=== PATIENT | female | born 1955 | race American Indian/Alaskan Native ===

== ENCOUNTER 2016-10-12 11:31 | Emergency (ER) | payer MEDICARE, BC ==
--- NOTE | 2016-10-12 14:06 | XRay Report ---
RIGHT HIP, 2 views: History: Right hip pain. Moderate osteoarthritic changes are identified at the right hip. End-stage osteoarthritic changes identified at the left. There is no evidence for fracture, dislocation or bone lesion. IMPRESSION: Osteoarthritic changes. No acute process.
[2016-10-12] MEDS ORDERED: NORCO 5/325 PO ONE (16:56)
--- NOTE | 2016-10-12 17:24 | Emergency Department Report ---
<JIMMIE REYES - Last Filed: 10/12/16 20:46> ED Abdominal Pain HPI - General Chief Complaint: Extremity Injury, Lower Stated Complaint: SEVERE RIGHT SIDED PAIN - Related Data Home Medications Medication Instructions Recorded Confirmed Last Taken Carvedilol [Coreg] 25 mg PO DAILY 02/18/13 03/10/16 03/09/16 25mg Simvastatin [Zocor TAB] 20 mg PO QHS 02/18/13 03/10/16 03/08/16 20mg Aspirin EC [Aspirin Enteric Coated 81 mg PO 4XW 05/08/14 03/10/16 03/08/16 TAB] 81mg Hydralazine HCl [Apresoline TAB] 50 mg PO TID 05/08/14 03/10/16 03/08/16 50mg Sevelamer HCl [Renagel] 500 mg PO TIDAC 05/08/14 03/10/16 03/09/16 500mg Clonidine HCl [Clonidine HCl] 0.2 mg PO TID 09/06/14 03/10/16 03/09/16 0.2mg Losartan Potassium [Losartan 100 mg PO DAILY 09/06/14 03/10/16 03/09/16 Potassium] 100mg NIFEdipine XL [Procardia Xl] 60 mg PO QDAY 03/26/15 03/10/16 03/08/16 60mg Vitamin B Comp and C/FA/Zn Cit 1 tab PO 3XW 03/26/15 03/10/16 03/09/16 [Dialyvite 800-Zinc 15 mg Tab] 1 tab Previous Rx's Medication Instructions Recorded Last Taken Type oxyCODONE /ACETAMINOPHEN [Percocet 1 tab PO Q6HR PRN #20 tablet 01/15/14 Rx 5/325 mg] 1 tab HYDROcodone/APAP 5-325 [[place] 1 each PO Q6HR PRN #7 tablet 10/12/16 Unknown Rx 5/325] Ondansetron [Zofran Odt] 4 mg PO Q8H PRN #10 tab.rapdis 10/12/16 Unknown Rx Allergies Allergy/AdvReac Type Severity Reaction Status Date / Time ampicillin Allergy Hives Verified 12/11/13 13:57 Penicillins Allergy Hives Verified 04/01/14 00:52 Sulfa (Sulfonamide Allergy Hives Verified 12/11/13 13:57 Antibiotics) ED Review of Systems ROS: Stated complaint: SEVERE RIGHT SIDED PAIN Other details as noted in HPI ED Past Medical Hx - Medications Home Medications: Home Medications Medication Instructions Recorded Confirmed Last Taken Type Carvedilol [Coreg] 25 mg PO DAILY 02/18/13 03/10/16 03/09/16 History 25mg Simvastatin [Zocor TAB] 20 mg PO QHS 02/18/13 03/10/16 03/08/16 History 20mg oxyCODONE /ACETAMINOPHEN [Percocet 1 tab PO Q6HR PRN #20 tablet 01/15/1403/08/16 Rx 5/325 mg] 1 tab Aspirin EC [Aspirin Enteric Coated 81 mg PO 4XW 05/08/14 03/10/16 03/08/16 History TAB] 81mg Hydralazine HCl [Apresoline TAB] 50 mg PO TID 05/08/14 03/10/16 03/08/16 History 50mg Sevelamer HCl [Renagel] 500 mg PO TIDAC 05/08/14 03/10/16 03/09/16 History 500mg Clonidine HCl [Clonidine HCl] 0.2 mg PO TID 09/06/14 03/10/16 03/09/16 History 0.2mg Losartan Potassium [Losartan 100 mg PO DAILY 09/06/14 03/10/16 03/09/16 History Potassium] 100mg NIFEdipine XL [Procardia Xl] 60 mg PO QDAY 03/26/15 03/10/16 03/08/16 History 60mg Vitamin B Comp and C/FA/Zn Cit 1 tab PO 3XW 03/26/15 03/10/16 03/09/16 History [Dialyvite 800-Zinc 15 mg Tab] 1 tab HYDROcodone/APAP 5-325 [[place] 1 each PO Q6HR PRN #7 tablet 10/12/16 Unknown Rx 5/325] Ondansetron [Zofran Odt] 4 mg PO Q8H PRN #10 tab.rapdis 10/12/16 Unknown Rx ED Course Vital Signs 10/12/16 10/12/16 13:30 17:03 Temperature 98.5 F Pulse Rate 89 Respiratory 16 18 Rate Blood Pressure 132/78 O2 Sat by Pulse 100 Oximetry ED Medical Decision Making - Lab Data Result diagrams: 10/12/16 18:04 10/12/16 18:04 Critical care attestation.: If time is entered above; I have spent that time in minutes in the direct care of this critically ill patient, excluding procedure time. ED Disposition Clinical Impression: Right upper quadrant pain Disposition: LEFT AGAINST MEDICAL ADVICE Condition: Stable Instructions: Biliary Colic (ED), Against Medical Advice (ED) Additional Instructions: I advised patient to return to the ED if she experiences fevers chills nausea vomiting inability to tolerate anything by mouth or worsening pain in her abdomen. Patient left AGAINST MEDICAL ADVICE Prescriptions: HYDROcodone/APAP 5-325 [[place] 5/325] 1 each PO Q6HR PRN #7 tablet PRN Reason: Pain Ondansetron [Zofran Odt] 4 mg PO Q8H PRN #10 tab.rapdis PRN Reason: Nausea Referrals: TEVIN GOMEZ MD [Staff Physician] - 3-5 Days Forms: AMA Form, Accompanied Note <PRESLEY SORIA - Last Filed: 10/12/16 21:08> ED Abdominal Pain HPI - General Source: patient Mode of arrival: Ambulatory Limitations: No Limitations - History of Present Illness Initial Comments: 60-year-old female past medical history diabetes hypertension hyperlipidemia stage renal disease on hemodialysis Wednesday presents with complaint of 2 days of right-sided abdominal pain mild nausea. She states that pain is waxing and waning but generally intensifying in nature slightly worse when she walks. Denies any fevers chills no dysuria patient does not make any urine because she is on dialysis. No rash on skin Complaint: abdominal pain Onset/Timin -: days(s) Location: RUQ, RLQ, R flank Migration to: RUQ Severity: moderate Severity scale (0 -10): 8 Quality: sharp Consistency: intermittent ED Review of Systems Constitutional: denies: chills, fever Eyes: denies: eye pain, eye discharge, vision change ENT: denies: ear pain, throat pain Respiratory: denies: cough, shortness of breath, wheezing Cardiovascular: denies: chest pain, palpitations Endocrine: no symptoms reported Gastrointestinal: abdominal pain (right sided abd pain). denies: nausea, diarrhea Genitourinary: denies: urgency, dysuria, discharge Musculoskeletal: denies: back pain, joint swelling, arthralgia Skin: denies: rash, lesions Neurological: denies: headache, weakness, paresthesias Psychiatric: denies: anxiety, depression Hematological/Lymphatic: denies: easy bleeding, easy bruising ED Past Medical Hx - Past Medical History Hx Hypertension: Yes Hx Congestive Heart Failure: Yes Hx Diabetes: Yes Hx GERD: Yes Hx Renal Disease: Yes Hx Arthritis: Yes (generalized) Hx Headaches / Migraines: Yes Additional medical history: dialysis MWFanemia. Cataracts. diabetic retinopathy. - Surgical History Additional Surgical History: had laser surgery on right eye related to diabetes - Social History Smoking Status: Never Smoker ED Physical Exam - General Limitations: No Limitations General appearance: alert, in no apparent distress - Head Head exam: Present: atraumatic, normocephalic - Eye Eye exam: Present: normal appearance, PERRL, EOMI - ENT ENT exam: Present: mucous membranes moist - Neck Neck exam: Present: normal inspection - Respiratory Respiratory exam: Present: normal lung sounds bilaterally. Absent: respiratory distress - Cardiovascular Cardiovascular Exam: Present: regular rate, normal rhythm. Absent: systolic murmur, diastolic murmur, rubs, gallop - GI/Abdominal GI/Abdominal exam: Present: soft, tenderness, guarding (right sided abdominal pain), normal bowel sounds - Extremities Exam Extremities exam: Present: normal inspection - Back Exam Back exam: Present: normal inspection - Neurological Exam Neurological exam: Present: alert, oriented X3 - Psychiatric Psychiatric exam: Present: normal affect, normal mood - Skin Skin exam: Present: warm, dry, intact, normal color. Absent: rash ED Medical Decision Making - Lab Data Result diagrams: 10/12/16 18:04 10/12/16 18:04 - Medical Decision Making A/P: Biliary colic versus cholecystitis 1-although patient has no fever is exhibiting right sided abdominal pain with nausea and persistent pain despite oral [place]. Correlated with CAT scan and ultrasound report patient has moderate to severe case of biliary colic. Bilirubins were not particularly elevated lactic acid is not elevated, however patient is having mild difficulty tolerating by mouth. Patient was nauseous and vomited when I reassessed her, complaining of pain returning to her right side. I informed the patient that if she was in severe pain with persistent nausea that it would be appropriate to admit her to the hospital for IV pain medicine and acute assessment by surgical team. Patient stated that she did not want to stay in the hospital 2-she elected to leave AMA I discussed the risks of leaving with the patient her daughter was present for this conversation. I informed her that if she develops cholecystitis or persistent pain suggestive of cholecystitis that this can be an emergent surgical condition. Patient stated she understood my explanation but still did not wish to be admitted to the hospital as evening. I advised patient to return to the ED if her symptoms worsened she experiences fevers chills persistent nausea and vomiting worsening pain as this is likely a sign of cholecystitis. I informed the patient that she is at risk of sepsis and if it is not treated medically and surgically. Patient stated she understood these risks daughter was present for this conversation. 3-Zofran when necessary, short course [place] 4-will provide patient with outpatient follow-up information for general surgery , Dr. Gomez. I discussed the case with Dr. Gomez before discharging the patient. At the time of consultation pt did not have significant pain and was not nauseous. Pain and nausea worsened after consultation. Initial plan was to discharge patient with outpatient follow-up surgery team however circumstances of her symptoms at the time of reassessment. I explained to the patient before she left that general surgery follow up is very important to her particular case. Pt stated she would call to make a f/u appointment ED Disposition Is pt being admited?: No Does the pt Need Aspirin: No Time of Disposition: 21:00
--- NOTE | 2016-10-12 18:21 | Cat Scan Report ---
FINAL REPORT EXAM: CT ABDOMEN PELVIS WO CON HISTORY: rlq pain TECHNIQUE: CT of the abdomen and pelvis without contrast PRIORS: Comparison is dated October 08, 2015 FINDINGS: There is no acute abnormality identified in the visualized lung bases No focal abnormality seen within the liver parenchyma on nonenhanced images Spleen is normal in size no peripancreatic inflammatory changes are observed. Kidneys demonstrate no evidence for nephrolithiasis or hydronephrosis Gallbladder is distended. There is some dense material seen layering within the gallbladder likely reflecting small stones or sludge There is increased amount of fecal material present throughout the colon. No evidence for small bowel distention. No free-fluid or free air identified. At L1-L2 there is some erosive change seen along the vertebral endplates new since the prior exam with some expansion of the disc space this is new since the prior study. There is some concern for discitis/osteomyelitis. Abdominal aorta is nondistended. . The appendix is identified and is unremarkable Impression Distended gallbladder. Small stones or sludge within the lumen of the gallbladder. If there is clinical concern for cholecystitis ultrasound suggested for further evaluation Findings suggestive of discitis/osteomyelitis at L1-L2. If continued clinical concern suggest followup MRI preferably with and without contrast for further evaluation
[2016-10-12 18:28] LABS: Basophils % (Auto) 0.8 % (0.0-1.8); Eosinophils % (Auto) 6.9 % (0.0-4.3); Hemoglobin 11.7 gm/dl (10.1-14.3); Mean Corpuscular HGB Conc 32 % (30-34); Mean Corpuscular Hemoglobin 31 pg (28-32); Mean Corpuscular Volume 96 fl (79-97); Platelet Count 206 K/mm3 (140-440); Red Blood Count 3.75 M/mm3 (3.65-5.03); Red Cell Distribution Width 14.3 % (13.2-15.2); White Blood Count 4.5 K/mm3 (4.5-11.0)
[2016-10-12 18:37] LABS: BUN/Creatinine Ratio 3.89; Calcium 9.5 mg/dL (8.4-10.2); Chloride 89.8 mmol/L (98-107); Potassium 4.6 mmol/L (3.6-5.0)
[2016-10-12 18:38] LABS: Alanine Aminotransferase 9 units/L (7-56); Albumin 3.9 g/dL (3.9-5); Alkaline Phosphatase 171 units/L (35-129)
[2016-10-12 18:39] LABS: Bilirubin,Direct < 0.2 mg/dL (0-0.2); Bilirubin,Indirect 0.1 mg/dL
--- NOTE | 2016-10-12 20:10 | Ultrasound Report ---
FINAL REPORT EXAM: US ABDOMEN LIMITED HISTORY: gallbladder distention on CT TECHNIQUE: Ultrasound abdomen PRIORS: Correlated today's earlier CT abdomen and pelvis FINDINGS: Gallbladder is distended. No evidence for gallbladder wall thickening. Wall thickness is 0.17 centimeters. There is some sludge seen within the lumen of the gallbladder. No pericholecystic fluid seen Common bile duct is within normal limits 0.5 centimeters pancreas is not well visualized aorta is not well seen. Proximal aorta is unremarkable. IMPRESSION: Sludge within distended gallbladder. No specific sonographic evidence for acute cholecystitis
[2016-10-12 20:45] LABS: Amylase 134 units/L (27-131); Lipase 19 units/L (13-60)
[2016-10-12] MEDS ORDERED: MORPHINE IM ONE (21:01)
[2016-10-12] MEDS: ZOFRAN ODT PO ONE ×2 (21:20→21:25)
[2016-10-12 22:10] VITALS: BP 130/82
== END 2016-10-12 22:10 | disposition left against medical advice (07) ==
LOC: ED 11:31
DX: R10.11 Right upper quadrant pain (principal); E11.22 Type 2 diabetes mellitus with diabetic chronic kidney disease; I12.0 Hypertensive chronic kidney disease with stage 5 chronic kidney disease or end stage renal disease; N18.6 End stage renal disease; Z99.2 Dependence on renal dialysis; I50.9 Heart failure, unspecified; K21.9 Gastro-esophageal reflux disease without esophagitis; G43.909 Migraine, unspecified, not intractable, without status migrainosus
CPT/HCPCS: 36415; 73502; 74176; 76705; 80048; 80074; 82140; 82150; 82962; 83690; 85025; 96372; 99284; J2270; Q0162

== ENCOUNTER 2017-08-07 11:23 | Emergency (ER) | payer MEDICARE ==
--- NOTE | 2017-08-07 13:33 | Emergency Department Report ---
HPI - General Chief Complaint: Back Pain/Injury Time Seen by Provider: 08/07/17 12:18 ED Past Medical Hx - Past Medical History Hx Hypertension: Yes Hx Congestive Heart Failure: Yes Hx Diabetes: Yes Hx GERD: Yes Hx Renal Disease: Yes Hx Arthritis: Yes (generalized) Hx Headaches / Migraines: Yes Additional medical history: dialysis MWF. anemia. Cataracts. diabetic retinopathy. - Surgical History Additional Surgical History: had laser surgery on right eye related to diabetes. HYSTERECTOMY. FISTULA LEFT ARM - Social History Smoking Status: Never Smoker - Medications Home Medications: Home Medications Medication Instructions Recorded Confirmed Last Taken Type Carvedilol [Coreg] 25 mg PO DAILY 02/18/13 10/15/16 03/09/16 History 25mg Simvastatin [Zocor TAB] 20 mg PO QHS 02/18/13 10/15/16 03/08/16 History 20mg Aspirin EC [Aspirin Enteric Coated 81 mg PO 4XW 05/08/14 10/15/16 03/08/16 History TAB] 81mg Sevelamer HCl [Renagel] 500 mg PO TIDAC 05/08/14 10/15/16 03/09/16 History 500mg Losartan Potassium 100 mg PO DAILY 09/06/14 10/15/16 03/09/16 History 100mg NIFEdipine XL [Procardia Xl] 60 mg PO QDAY 03/26/15 10/15/16 03/08/16 History 60mg Vit B Complx C/Folic Acid/Zinc 1 tab PO 3XW 03/26/15 10/15/16 03/09/16 History [Dialyvite 800-Zinc 15 mg Tab] 1 tab Metoclopramide HCl [Reglan TAB] 5 mg PO Q8H PRN #10 tablet 10/12/16 10/15/16 Unknown Rx metroNIDAZOLE [Flagyl] 500 mg PO Q12HR #20 tab 10/12/16 10/15/16 Unknown Rx Dicyclomine [Bentyl] 10 mg PO QID #120 capsule 10/17/16 Unknown Rx Lactulose [Cephulac] 20 gm PO QHS PRN #30 each 10/17/16 Unknown Rx Oxycodone HCl/Acetaminophen 1 each PO Q6HR PRN #30 tablet 10/17/16 Unknown Rx [Percocet 10/325 mg] ED Review of Systems ROS: Stated complaint: BACK/BILATERAL FLANK PAIN/FALL Other details as noted in HPI Physical Exam - Physical Exam Vital Signs: Vital Signs 08/07/17 11:29 Temperature 98.8 F Pulse Rate 98 H Respiratory 20 Rate Blood Pressure 179/92 [Right] O2 Sat by Pulse 96 Oximetry ED Course Vital Signs 08/07/17 11:29 Temperature 98.8 F Pulse Rate 98 H Respiratory 20 Rate Blood Pressure 179/92 [Right] O2 Sat by Pulse 96 Oximetry Critical care attestation.: If time is entered above; I have spent that time in minutes in the direct care of this critically ill patient, excluding procedure time. ED Disposition Condition: Stable Referrals: RUSTY SANTIAGO MD [Primary Care Provider] - 3-5 Days
[2017-08-07] MEDS ORDERED: PERCOCET 5/325 PO ONE (13:34)
[2017-08-07] MEDS ORDERED: DECADRON IM ONE (13:34)
[2017-08-07] MEDS ORDERED: ZOFRAN ODT PO ONE (13:34)
--- NOTE | 2017-08-07 13:41 | Emergency Department Report ---
Chief Complaint: Back Pain/Injury Stated Complaint: BACK/BILATERAL FLANK PAIN/FALL Time Seen by Provider: 08/07/17 12:18 - HPI History of Present Illness: Patient here reports that she fell over a week ago and hurt her back. She says she was evaluated at [place] where they did a scan of her back. She said they told her that she had a pulled muscle but now she is having pain to both her hips and her lower back that radiated around her stomach area. Denies any fever or chills. Patient's that she is on dialysis and she missed her dialysis yesterday. Her pain is 10 out of 10 to her abdomen. Denies any nausea or vomiting. Patient is requested to be admitted because she said they wanted to admit her but she had a in her family. She says she is taking ibuprofen [id number] and it's not helping. Patient denies any other problems. - ROS Review of Systems: All systems are negative unless stated in HPI above - Exam Vital Signs: Vital Signs 08/07/17 11:29 Temperature 98.8 F Pulse Rate 98 H Respiratory 20 Rate Blood Pressure 179/92 [Right] O2 Sat by Pulse 96 Oximetry Physical Exam: Gen.: elderly female that looks older than her age and a wheelchair and appears to be frail. Abdomen: Mild tenderness palpating lower quadrant. No acute abdomen, no guarding or rebound and no CVA tenderness. MSE screening note: Focused history and physical exam performed. Due to findings the following was ordered: ED Medical Decision Making - Medical Decision Making MDM: Patient medically screened and to be seen by Edilberto She is to receive Percocet 5/325 2 tablets, Decadron 10 mg IM for radiculopathic pain and Zofran 4 mg ODT to prevent nausea. Labs and CT scan ordered. ED Disposition for MSE Condition: Stable Referrals: RUSTY SANTIAGO MD [Primary Care Provider] - 3-5 Days
[2017-08-07 14:18] LABS: Basophils % (Auto) 0.9 % (0.0-1.8); Eosinophils # (Auto) 0.3 K/mm3 (0.0-0.4); Hematocrit 35.6 % (30.3-42.9); Hemoglobin 11.4 gm/dl (10.1-14.3); Lymphocytes # (Auto) 0.9 K/mm3 (1.2-5.4); Lymphocytes % (Auto) 21.2 % (13.4-35.0); Mean Corpuscular HGB Conc 32 % (30-34); Mean Corpuscular Hemoglobin 31 pg (28-32); Mean Corpuscular Volume 95 fl (79-97); Monocytes # (Auto) 0.6 K/mm3 (0.0-0.8); Monocytes % (Auto) 13.2 % (0.0-7.3); Platelet Count 278 K/mm3 (140-440); Red Blood Count 3.73 M/mm3 (3.65-5.03)
[2017-08-07 14:39] LABS: Albumin 3.6 g/dL (3.9-5); Calcium 9.3 mg/dL (8.4-10.2)
--- NOTE | 2017-08-07 15:23 | Cat Scan Report ---
FINAL REPORT EXAM: CT ABDOMEN PELVIS WO CON HISTORY: abdominal pain TECHNIQUE: CT of the abdomen and pelvis was performed without intravenous contrast. Reconstructions were included in the coronal and sagittal planes. PRIORS: 10/12/2016. FINDINGS: Lower thorax: The lung bases are clear. Coronary artery calculi seen. Liver: The liver is normal in attenuation. No intrahepatic biliary duct dilation. No focal hepatic lesions. Gallbladder/ biliary system: Sludge or small stones are again seen layering in the gallbladder. There appears to be gallbladder wall thickening with a trace amount of pericholecystic fluid. The common bile duct appears nondilated. Spleen: No splenic lesions are seen. Pancreas: No pancreatic lesions are seen. No pancreatic duct dilation. Kidneys: A simple left renal cyst is seen. 2 millimeter calculus is seen in the inferior pole of the right kidney. No ureteral calculi. No hydronephrosis. Adrenal glands: No adrenal masses. Vasculature: The abdominal aorta is nondilated. Atherosclerotic calcifications are seen in the abdominal aorta. Lymph nodes: No enlarged lymph nodes are seen in the abdomen or pelvis. Bowel, mesentery, peritoneum: No bowel obstruction. No free fluid or free air. The appendix was not definitively seen. No colonic diverticulosis. No bowel wall thickening. There is a large amount of retained stool throughout the colon. Urinary bladder: No filling defects are seen. Pelvis: Post hysterectomy. Abdominal wall: There is diastasis of the rectus abdominus musculature. Bones: Unchanged degenerative findings in the spine. Chronic endplate changes at L1-2 are again seen with severe destruction of the endplates and gas within the disc space. Severe degenerative changes of the hip joints are seen. IMPRESSION: 1. Cholelithiasis or gallbladder sludge with gallbladder wall thickening and pericholecystic fluid which can be seen in acute cholecystitis. Consider further evaluation with right upper quadrant ultrasound. 2. Findings of constipation. 3. Similar chronic changes at L1-2 which may be related to chronic discitis/osteomyelitis versus inflammatory arthropathy or other neoplasm. 4. Nonobstructing right renal calculus.
--- NOTE | 2017-08-07 16:36 | Emergency Department Report ---
ED Fall HPI - General Chief Complaint: Back Pain/Injury Stated Complaint: BACK/BILATERAL FLANK PAIN/FALL Time Seen by Provider: 08/07/17 12:18 Source: patient (Her main complaint is the right flank pain that radiates to right groin. It all started after falling 2 weeks ago. She went to [facility] and had fall work up with no significant findings. Pain is the same and worse with movement. She ran out of Percocet and can't get refill until her PCP, Dr. Can, sees her on the 19 of August. I explained to her the CT abdomen findings in details. I gave her the option of staying in the hospital or manage the pain at home she preferred going home with pain medication and antibiotics. ) Mode of arrival: Wheelchair - Related Data Home Medications Medication Instructions Recorded Confirmed Last Taken Carvedilol [Coreg] 25 mg PO DAILY 02/18/13 10/15/16 03/09/16 25mg Simvastatin [Zocor TAB] 20 mg PO QHS 02/18/13 10/15/16 03/08/16 20mg Aspirin EC [Aspirin Enteric Coated 81 mg PO 4XW 05/08/14 10/15/16 03/08/16 TAB] 81mg Sevelamer HCl [Renagel] 500 mg PO TIDAC 05/08/14 10/15/16 03/09/16 500mg Losartan Potassium 100 mg PO DAILY 09/06/14 10/15/16 03/09/16 100mg NIFEdipine XL [Procardia Xl] 60 mg PO QDAY 03/26/15 10/15/16 03/08/16 60mg Vit B Complx C/Folic Acid/Zinc 1 tab PO 3XW 03/26/15 10/15/16 03/09/16 [Dialyvite 800-Zinc 15 mg Tab] 1 tab Previous Rx's Medication Instructions Recorded Last Taken Type Metoclopramide HCl [Reglan TAB] 5 mg PO Q8H PRN #10 tablet 10/12/16 Unknown Rx metroNIDAZOLE [Flagyl] 500 mg PO Q12HR #20 tab 10/12/16 Unknown Rx Dicyclomine [Bentyl] 10 mg PO QID #120 capsule 10/17/16 Unknown Rx Lactulose [Cephulac] 20 gm PO QHS PRN #30 each 10/17/16 Unknown Rx Ciprofloxacin HCl [Cipro] 500 mg PO BID #20 tablet 08/07/17 Unknown Rx Oxycodone HCl/Acetaminophen 1 each PO Q6HR PRN #30 tablet 08/07/17 Unknown Rx [Percocet 10/325 mg] cloNIDine [Catapres] 0.2 mg PO QHS #30 tablet 08/07/17 Unknown Rx Allergies Allergy/AdvReac Type Severity Reaction Status Date / Time ampicillin Allergy Hives Verified 10/13/16 16:12 Penicillins Allergy Hives Verified 10/13/16 16:12 Sulfa (Sulfonamide Allergy Hives Verified 10/13/16 16:12 Antibiotics) ED Review of Systems ROS: Stated complaint: BACK/BILATERAL FLANK PAIN/FALL Other details as noted in HPI Constitutional: denies: chills, fever Eyes: denies: eye pain, eye discharge, vision change ENT: denies: ear pain, throat pain Respiratory: denies: cough, shortness of breath, wheezing Cardiovascular: denies: chest pain, palpitations Endocrine: no symptoms reported Gastrointestinal: abdominal pain (RLQ pain), constipation (chronic). denies: nausea, diarrhea Genitourinary: denies: urgency, dysuria, discharge Musculoskeletal: denies: back pain, joint swelling, arthralgia Skin: denies: rash, lesions Neurological: denies: headache, weakness, paresthesias Psychiatric: denies: anxiety, depression Hematological/Lymphatic: denies: easy bleeding, easy bruising ED Past Medical Hx - Past Medical History Hx Hypertension: Yes Hx Congestive Heart Failure: Yes Hx Diabetes: Yes Hx GERD: Yes Hx Renal Disease: Yes Hx Arthritis: Yes (generalized) Hx Headaches / Migraines: Yes Additional medical history: dialysis MWF. anemia. Cataracts. diabetic retinopathy. - Surgical History Additional Surgical History: had laser surgery on right eye related to diabetes. HYSTERECTOMY. FISTULA LEFT ARM - Social History Smoking Status: Never Smoker - Medications Home Medications: Home Medications Medication Instructions Recorded Confirmed Last Taken Type Carvedilol [Coreg] 25 mg PO DAILY 02/18/13 10/15/16 03/09/16 History 25mg Simvastatin [Zocor TAB] 20 mg PO QHS 02/18/13 10/15/16 03/08/16 History 20mg Aspirin EC [Aspirin Enteric Coated 81 mg PO 4XW 11/25/14 05/04/17 09/25/16 History TAB] 81mg Sevelamer HCl [Renagel] 500 mg PO TIDAC 05/08/14 10/15/16 03/09/16 History 500mg Losartan Potassium 100 mg PO DAILY 09/06/14 10/15/16 03/09/16 History 100mg NIFEdipine XL [Procardia Xl] 60 mg PO QDAY 03/26/15 10/15/16 03/08/16 History 60mg Vit B Complx C/Folic Acid/Zinc 1 tab PO 3XW 03/26/15 10/15/16 03/09/16 History [Dialyvite 800-Zinc 15 mg Tab] 1 tab Metoclopramide HCl [Reglan TAB] 5 mg PO Q8H PRN #10 tablet 10/12/16 10/15/16 Unknown Rx metroNIDAZOLE [Flagyl] 500 mg PO Q12HR #20 tab 10/12/16 10/15/16 Unknown Rx Dicyclomine [Bentyl] 10 mg PO QID #120 capsule 10/17/16 Unknown Rx Lactulose [Cephulac] 20 gm PO QHS PRN #30 each 10/17/16 Unknown Rx Ciprofloxacin HCl [Cipro] 500 mg PO BID #20 tablet 08/07/17 Unknown Rx Oxycodone HCl/Acetaminophen 1 each PO Q6HR PRN #30 tablet 08/07/17 Unknown Rx [Percocet 10/325 mg] cloNIDine [Catapres] 0.2 mg PO QHS #30 tablet 08/07/17 Unknown Rx ED Physical Exam - General Limitations: No Limitations General appearance: alert, in no apparent distress - Head Head exam: Present: atraumatic, normocephalic - Eye Eye exam: Present: normal appearance - ENT ENT exam: Present: mucous membranes moist - Neck Neck exam: Present: normal inspection - Respiratory Respiratory exam: Present: normal lung sounds bilaterally. Absent: respiratory distress - Cardiovascular Cardiovascular Exam: Present: regular rate, normal rhythm. Absent: systolic murmur, diastolic murmur, rubs, gallop - GI/Abdominal GI/Abdominal exam: Present: soft, tenderness (RLQ, right flank), normal bowel sounds - Extremities Exam Extremities exam: Present: normal inspection - Back Exam Back exam: Present: normal inspection - Neurological Exam Neurological exam: Present: alert, oriented X3 - Psychiatric Psychiatric exam: Present: normal affect, normal mood - Skin Skin exam: Present: warm, dry, intact, normal color. Absent: rash ED Course Vital Signs 08/07/17 08/07/17 11:29 13:52 Temperature 98.8 F Pulse Rate 98 H Respiratory 20 18 Rate Blood Pressure 179/92 [Right] O2 Sat by Pulse 96 Oximetry ED Medical Decision Making - Lab Data Result diagrams: 08/07/17 14:04 08/07/17 14:04 Critical care attestation.: If time is entered above; I have spent that time in minutes in the direct care of this critically ill patient, excluding procedure time. ED Disposition Clinical Impression: Right flank pain Cholelithiasis Qualifiers: Cholelithiasis location: gallbladder Cholecystitis presence: with cholecystitis Cholecystitis acuity: unspecified acuity Biliary obstruction: without biliary obstruction Qualified Code(s): K80.00 - Calculus of gallbladder with acute cholecystitis without obstruction Lower back pain Qualifiers: Chronicity: unspecified Back pain laterality: right Sciatica presence: with sciatica Sciatica laterality: sciatica of right side Qualified Code(s): M54.41 - Lumbago with sciatica, right side Constipation Qualifiers: Constipation type: unspecified constipation type Qualified Code(s): K59.00 - Constipation, unspecified Disposition: DC- TO HOME OR SELFCARE Is pt being admited?: No Does the pt Need Aspirin: No Condition: Stable Prescriptions: cloNIDine [Catapres] 0.2 mg PO QHS #30 tablet Ciprofloxacin HCl [Cipro] 500 mg PO BID #20 tablet Oxycodone HCl/Acetaminophen [Percocet 10/325 mg] 1 each PO Q6HR PRN #30 tablet PRN Reason: Pain Referrals: RUSTY SANTIAGO MD [Primary Care Provider] - 3-5 Days Time of Disposition: 16:37
[2017-08-07 16:57] VITALS: BP 172/88
== END 2017-08-07 16:54 | disposition home or self-care (01) ==
LOC: ED 11:23
DX: K80.00 Calculus of gallbladder with acute cholecystitis without obstruction (principal); M54.41 Lumbago with sciatica, right side; K59.00 Constipation, unspecified; R10.30 Lower abdominal pain, unspecified; I10 Essential (primary) hypertension; I50.9 Heart failure, unspecified; E11.9 Type 2 diabetes mellitus without complications; K21.9 Gastro-esophageal reflux disease without esophagitis; G43.909 Migraine, unspecified, not intractable, without status migrainosus
CPT/HCPCS: 36415; 74176; 80053; 83690; 85025; 96372; 99284; J1100; Q0162

== ENCOUNTER 2017-09-02 13:19 | Outpatient (CLI) | payer MEDICARE ==
--- NOTE | 2017-09-02 14:33 | XRay Report ---
ROUTINE CHEST, TWO VIEWS: HISTORY: Cough. The trachea, heart, mediastinal contour, lung jackson and bony thorax are unremarkable. IMPRESSION: Unremarkable chest x-ray.
[2017-09-02 14:48] LABS: Hematocrit 36.7 % (30.3-42.9); Hemoglobin 11.9 gm/dl (10.1-14.3); Mean Corpuscular HGB Conc 32 % (30-34); Mean Corpuscular Hemoglobin 31 pg (28-32); Mean Corpuscular Volume 94 fl (79-97); Platelet Count 236 K/mm3 (140-440); Red Blood Count 3.91 M/mm3 (3.65-5.03); Red Cell Distribution Width 15.2 % (13.2-15.2)
[2017-09-02 14:59] LABS: INR 0.97 (0.87-1.13)
[2017-09-02 15:00] LABS: Partial Thromboplastin Time 33.4 Sec. (24.2-36.6)
[2017-09-02 15:25] LABS: Albumin 3.9 g/dL (3.9-5); BUN/Creatinine Ratio 4; Blood Urea Nitrogen 26 mg/dL (7-17); Calcium 9.5 mg/dL (8.4-10.2); Hemolysis Index 12
[2017-09-02 15:26] LABS: Alanine Aminotransferase < 5 units/L (7-56)
== END 2017-09-02 13:20 | disposition home or self-care (01) ==
LOC: CARD 13:19
PROVIDERS: ATTEND Internal Medicine
DX: Z01.818 Encounter for other preprocedural examination (principal); R07.9 Chest pain, unspecified; R05 Cough; R06.00 Dyspnea, unspecified
CPT/HCPCS: 36415; 71046; 80053; 84443; 85027; 85610; 85730; 93005; 93010

== ENCOUNTER 2017-12-09 10:03 | Outpatient (CLI) | payer MEDICARE ==
[2017-12-09 10:17] LABS: Hemoglobin 10.6 gm/dl (10.1-14.3); Mean Corpuscular HGB Conc 32 % (30-34); Mean Corpuscular Hemoglobin 30 pg (28-32); Mean Corpuscular Volume 94 fl (79-97); Platelet Count 185 K/mm3 (140-440); Red Blood Count 3.51 M/mm3 (3.65-5.03); Red Cell Distribution Width 15.9 % (13.2-15.2)
[2017-12-09 10:41] LABS: Albumin 3.5 g/dL (3.9-5); BUN/Creatinine Ratio 5; Blood Urea Nitrogen 25 mg/dL (7-17); Calcium 9.5 mg/dL (8.4-10.2); Hemolysis Index 3
[2017-12-09 10:42] LABS: Alanine Aminotransferase < 5 units/L (7-56)
[2017-12-09 10:55] LABS: Platelet Estimate Consistent w Auto; RBC Morphology Normal; Total Cells Counted 100
== END 2017-12-09 10:04 | disposition home or self-care (01) ==
LOC: LAB 10:03
PROVIDERS: ATTEND Orthopaedic Surgery Orthopaedic Surgery of the Spine
DX: Z01.818 Encounter for other preprocedural examination (principal); I13.2 Hypertensive heart and chronic kidney disease with heart failure and with stage 5 chronic kidney disease, or end stage renal disease; E11.22 Type 2 diabetes mellitus with diabetic chronic kidney disease; N18.6 End stage renal disease; D63.1 Anemia in chronic kidney disease; E78.00 Pure hypercholesterolemia, unspecified; K21.9 Gastro-esophageal reflux disease without esophagitis; M19.90 Unspecified osteoarthritis, unspecified site; E07.9 Disorder of thyroid, unspecified; Z82.49 Family history of ischemic heart disease and other diseases of the circulatory system; Z90.710 Acquired absence of both cervix and uterus; Z83.3 Family history of diabetes mellitus; Z99.2 Dependence on renal dialysis
CPT/HCPCS: 36415; 80053; 85007; 85025